=== PATIENT | female | born 1930 | race Caucasian/White ===

== ENCOUNTER 2021-07-09 18:28 | Inpatient (IN) ==
[2021-07-09] MEDS ORDERED: Ipratropium/Albuterol Neb 3 ML IH ONE (18:33)
[2021-07-09] MEDS ORDERED: methylPREDNISolone 125 MG/2 ML VIAL IVP ONE (18:33)
[2021-07-09] MEDS ORDERED: *HR* LORazepam 2 MG/ML VIAL IVP ONE (18:42)
[2021-07-09 19:03] LABS: Basophils # 0.1 K/mcL (0.0-0.2); Basophils % 1.1 %; Eosinophils # 0.3 K/mcL (0.0-0.6); Eosinophils % 3.2 %; Hematocrit 37.6 % (35.3-44.9); Hemoglobin 11.5 g/dL (11.5-15.4); Immature Granulocytes % 0.3 % (0-4); Lymphocytes # 3.1 K/mcL (0.6-4.6); Mean Corpuscular HGB Conc 30.6 g/dL (31.6-35.5); Mean Corpuscular Hemoglobin 28.3 pg (28.0-33.3); Mean Corpuscular Volume 92.4 fL (83.0-100.0); Mean Platelet Volume 10.6 fL (9.4-12.4); Monocytes # 0.8 K/mcL (0.0-1.3); Monocytes % 8.4 %; Neutrophils # 5.3 K/mcL (1.6-8.9); Platelet Count 291 K/mcL (140-400); Red Blood Count 4.07 M/mcL (3.82-4.97); Red Cell Distribution Width 15.5 % (11.5-14.5); White Blood Count 9.6 K/mcL (4.3-11.1)
[2021-07-09 19:23] LABS: BUN/Creatinine Ratio 15 (6-26); Blood Urea Nitrogen 13 mg/dL (8-23); Carbon Dioxide 26 mEq/L (23-29); Chloride 105 mEq/L (98-107); Glucose 162 mg/dL (70-105); Osmolality,Calculated 290 (280-300); Potassium 4.3 mEq/L (3.5-5.1); Sodium 138 mEq/L (136-145); eGFR For African Americans > 60 (> 60); eGFR For Non-African Americans > 60 (> 60)
[2021-07-09 19:25] LABS: Troponin I < 0.03 ng/mL (< 0.04)
[2021-07-09] MEDS ORDERED: Furosemide 40 MG/4 ML VIAL IVP ONE (19:44)
[2021-07-09] MEDS ORDERED: Ondansetron ODT 4 MG TAB.RAPDIS SL PRN (20:37)
[2021-07-09] MEDS ORDERED: Naloxone 0.4 MG/ML INJ IVP PRN (20:37)
[2021-07-09] MEDS ORDERED: Perflutren Lipid Microsphere 1.3 ML in 0.9 % Sodium Chloride 8.7 ML IVP PRN (20:50)
[2021-07-09] MEDS ORDERED: Isovue-370 500 ML BOTTLE IVP ONE (22:07)
[2021-07-09] MEDS ORDERED: Gabapentin 100 MG CAPSULE PO SCH (23:30)
[2021-07-10] MEDS: Gabapentin 100 MG CAPSULE PO SCH ×2 (00:27→21:24)
[2021-07-10 02:51] LABS: Hematocrit 34.6 % (35.3-44.9); Hemoglobin 10.7 g/dL (11.5-15.4); Mean Corpuscular HGB Conc 30.9 g/dL (31.6-35.5); Mean Corpuscular Hemoglobin 27.6 pg (28.0-33.3); Mean Corpuscular Volume 89.2 fL (83.0-100.0); Mean Platelet Volume 10.1 fL (9.4-12.4); Platelet Count 210 K/mcL (140-400); Red Blood Count 3.88 M/mcL (3.82-4.97); Red Cell Distribution Width 15.3 % (11.5-14.5); White Blood Count 5.2 K/mcL (4.3-11.1)
[2021-07-10 03:14] LABS: Alanine Aminotransferase 15 Units/L (7-52); Albumin 3.8 g/dL (3.5-5.7); Albumin/Globulin Ratio 1.5 (1.1-2.2); Alkaline Phosphatase 92 Units/L (34-104); Aspartate Amino Transferase 15 Units/L (13-39); BUN/Creatinine Ratio 18 (6-26); Bilirubin,Total 0.9 mg/dL (0.3-1.0); Blood Urea Nitrogen 13 mg/dL (8-23); Calcium 8.8 mg/dL (8.6-10.3); Carbon Dioxide 25 mEq/L (23-29); Chloride 103 mEq/L (98-107); Globulin 2.6 g/dL (2.4-3.5); Glucose 166 mg/dL (70-105); Magnesium 1.7 mg/dL (1.6-2.6); Osmolality,Calculated 288 (280-300); Phosphorous 4.4 mg/dL (2.7-4.5); Potassium 3.9 mEq/L (3.5-5.1); Sodium 137 mEq/L (136-145); Total Protein 6.4 g/dL (6.4-8.9); eGFR For African Americans > 60 (> 60); eGFR For Non-African Americans > 60 (> 60)
[2021-07-10] MEDS: Ipratropium/Albuterol Neb 3 ML IH SCH ×4 (04:07→21:51)
[2021-07-10] MEDS ORDERED: MethylPREDNISolone 40 MG/ML VIAL IVP SCH (06:00)
[2021-07-10] MEDS: *HR* Heparin 5,000 UNIT/ML VIAL SQ SCH ×2 (06:51→16:52)
[2021-07-10] MEDS: Furosemide 20 MG/2 ML VIAL IVP SCH ×2 (08:55→21:26)
[2021-07-10] MEDS: Melatonin 3 MG TABLET PO PRN (21:25)
[2021-07-11] MEDS: Ipratropium/Albuterol Neb 3 ML IH SCH ×4 (03:34→20:54)
[2021-07-11] MEDS: *HR* Heparin 5,000 UNIT/ML VIAL SQ SCH ×2 (06:53→17:18)
[2021-07-11] MEDS: Furosemide 20 MG/2 ML VIAL IVP SCH ×2 (10:07→21:02)
[2021-07-11] MEDS: Budesonide/Formoterol 160/4.5 1 PUFF INH IH SCH (20:54)
[2021-07-11] MEDS: Gabapentin 100 MG CAPSULE PO SCH (21:02)
[2021-07-11] MEDS: Melatonin 3 MG TABLET PO PRN (23:23)
[2021-07-12] MEDS: Ipratropium/Albuterol Neb 3 ML IH SCH ×3 (04:23→15:54)
[2021-07-12] MEDS: *HR* Heparin 5,000 UNIT/ML VIAL SQ SCH (05:58)
[2021-07-12 06:55] LABS: Basophils % 0.9 %; Eosinophils # 0.1 K/mcL (0.0-0.6); Eosinophils % 1.9 %; Hematocrit 36.4 % (35.3-44.9); Hemoglobin 10.7 g/dL (11.5-15.4); Immature Granulocytes % 0.4 % (0-4); Lymphocytes % 22.2 %; Mean Corpuscular HGB Conc 29.4 g/dL (31.6-35.5); Mean Corpuscular Hemoglobin 27.6 pg (28.0-33.3); Mean Corpuscular Volume 94.1 fL (83.0-100.0); Mean Platelet Volume 10.9 fL (9.4-12.4); Monocytes # 0.4 K/mcL (0.0-1.3); Monocytes % 9.5 %; Platelet Count 170 K/mcL (140-400); Red Blood Count 3.87 M/mcL (3.82-4.97); Red Cell Distribution Width 15.7 % (11.5-14.5); Segmented Neutrophils % 65.1 %; White Blood Count 4.6 K/mcL (4.3-11.1)
[2021-07-12 07:32] LABS: BUN/Creatinine Ratio 28 (6-26); Blood Urea Nitrogen 20 mg/dL (8-23); Calcium 8.8 mg/dL (8.6-10.3); Carbon Dioxide 33 mEq/L (23-29); Chloride 100 mEq/L (98-107); Glucose 91 mg/dL (70-105); Magnesium 1.8 mg/dL (1.6-2.6); Osmolality,Calculated 288 (280-300); Potassium 3.7 mEq/L (3.5-5.1); Sodium 138 mEq/L (136-145); eGFR For African Americans > 60 (> 60); eGFR For Non-African Americans > 60 (> 60)
[2021-07-12 08:07] VITALS: BP 119/60; PULSE 76; TEMP 98.2; O2SAT 93
[2021-07-12] MEDS: Furosemide 20 MG/2 ML VIAL IVP SCH (08:10)
[2021-07-12] MEDS ORDERED: Aspirin Enteric Coated 81 MG Tablet PO SCH (09:00)
[2021-07-12] MEDS ORDERED: Metoprolol XL (24 HR) Succ 25 MG TAB.ER.24H PO SCH (09:00)
[2021-07-12] MEDS ORDERED: Sennosides/Docusate Sodium TABLET PO SCH (10:00)
[2021-07-12] MEDS ORDERED: polyethylene glycoL 3350 17 GM POWD.PACK PO SCH (10:00)
[2021-07-12] MEDS: Budesonide/Formoterol 160/4.5 1 PUFF INH IH SCH (10:31)
[2021-07-12] MEDS ORDERED: lisinopriL 5 MG TABLET PO SCH (13:00)
[2021-07-13] MEDS ORDERED: Furosemide 20 MG TABLET PO SCH (09:00)
== END 2021-07-12 16:39 | disposition home health service (06) | DRG 291 ==
LOC: 2ANU 18:28 → EMEROOARM 18:28 → SUATTDRO 21:02 → 2NENU 22:20
PROVIDERS: ADMIT Student in an Organized Health Care Education/Training Program; ATTEND Internal Medicine

== ENCOUNTER 2021-11-01 14:47 | Inpatient (IN) ==
[2021-11-01 15:18] LABS: Basophils # 0.1 K/mcL (0.0-0.2); Eosinophils # 0.1 K/mcL (0.0-0.6); Eosinophils % 1.7 %; Hematocrit 32.2 % (35.3-44.9); Hemoglobin 9.8 g/dL (11.5-15.4); Immature Granulocytes % 0.4 % (0-4); Lymphocytes # 0.7 K/mcL (0.6-4.6); Lymphocytes % 14.9 %; Mean Corpuscular HGB Conc 30.4 g/dL (31.6-35.5); Mean Corpuscular Hemoglobin 27.5 pg (28.0-33.3); Mean Corpuscular Volume 90.2 fL (83.0-100.0); Mean Platelet Volume 10.6 fL (9.4-12.4); Monocytes # 0.4 K/mcL (0.0-1.3); Monocytes % 7.6 %; Neutrophils # 3.6 K/mcL (1.6-8.9); Platelet Count 209 K/mcL (140-400); Red Blood Count 3.57 M/mcL (3.82-4.97); Red Cell Distribution Width 15.8 % (11.5-14.5); Segmented Neutrophils % 74.4 %; White Blood Count 4.8 K/mcL (4.3-11.1)
[2021-11-01 15:39] LABS: BUN/Creatinine Ratio 19 (6-26); Blood Urea Nitrogen 19 mg/dL (8-23); Calcium 8.8 mg/dL (8.6-10.3); Carbon Dioxide 25 mEq/L (23-29); Chloride 108 mEq/L (98-107); Glucose 117 mg/dL (70-105); Osmolality,Calculated 293 (280-300); Potassium 3.7 mEq/L (3.5-5.1); Sodium 140 mEq/L (136-145)
[2021-11-01 15:40] LABS: Troponin I < 0.03 ng/mL (< 0.04)
[2021-11-01] MEDS ORDERED: Ipratropium/Albuterol Neb 3 ML IH ONE (20:56)
[2021-11-01 23:24] LABS: Influenza A PCR Negative (Negative); Influenza B PCR Negative (Negative); Resp. Syncytial Virus PCR Negative (Negative)
[2021-11-01 23:28] LABS: SARS-CoV-2 by PCR (In House) Negative (Negative)
[2021-11-02] MEDS ORDERED: cefTRIAXone 1,000 MG in 0.9 % Sodium Chloride Mini Bag 100 ML IVPB ONE (01:31)
[2021-11-02] MEDS ORDERED: Azithromycin 500 MG in 0.9 % Sodium Chloride 250 ML IVPB ONE (03:06)
[2021-11-02] MEDS ORDERED: Furosemide 40 MG/4 ML VIAL IVP ONE (03:06)
[2021-11-02] MEDS ORDERED: Naloxone 0.4 MG/ML INJ IVP PRN (03:28)
[2021-11-02] MEDS ORDERED: Ondansetron ODT 4 MG TAB.RAPDIS SL PRN (03:28)
[2021-11-02] MEDS ORDERED: Melatonin 3 MG TABLET PO PRN (03:28)
[2021-11-02] MEDS ORDERED: Albuterol 2.5 MG/3 ML NEBULIZER IH PRN (04:58)
[2021-11-02 06:22] LABS: Hematocrit 32.9 % (35.3-44.9); Hemoglobin 10.2 g/dL (11.5-15.4); Mean Corpuscular Volume 90.4 fL (83.0-100.0); Mean Platelet Volume 10.7 fL (9.4-12.4); Platelet Count 199 K/mcL (140-400); Red Blood Count 3.64 M/mcL (3.82-4.97); Red Cell Distribution Width 15.7 % (11.5-14.5); White Blood Count 6.2 K/mcL (4.3-11.1)
[2021-11-02 06:45] LABS: Calcium 9.1 mg/dL (8.6-10.3); Magnesium 1.8 mg/dL (1.6-2.6); Potassium 3.8 mEq/L (3.5-5.1)
[2021-11-02] MEDS: Aspirin Enteric Coated 81 MG Tablet PO SCH (09:26)
[2021-11-02] MEDS: Budesonide/Formoterol 160/4.5 1 PUFF INH IH SCH ×2 (10:41→21:58)
[2021-11-02] MEDS: Ipratropium Neb 0.5 MG NEBULIZER IH SCH ×2 (10:41→21:58)
[2021-11-02] MEDS: Furosemide 20 MG/2 ML VIAL IVP SCH ×2 (12:23→21:24)
[2021-11-02] MEDS ORDERED: Nitroglycerin 0.4 MG TAB.SUBL SL SCH (17:45)
[2021-11-02] MEDS ORDERED: Nitroglycerin 0.4 MG TAB.SUBL SL PRN (17:53)
[2021-11-02] MEDS: GuaiFENesin Liq 200 MG/10 ML UDC PO PRN (21:24)
[2021-11-02] MEDS: Gabapentin 100 MG CAPSULE PO SCH (22:23)
[2021-11-03] MEDS: *HR* Enoxaparin 40 MG/0.4 ML SYRINGE SQ SCH (05:09)
[2021-11-03] MEDS: Ipratropium Neb 0.5 MG NEBULIZER IH SCH ×2 (08:08→20:13)
[2021-11-03] MEDS: Budesonide/Formoterol 160/4.5 1 PUFF INH IH SCH ×2 (08:08→20:13)
[2021-11-03] MEDS: Furosemide 20 MG/2 ML VIAL IVP SCH ×3 (09:00→22:29)
[2021-11-03] MEDS: Metoprolol XL (24 HR) Succ 25 MG TAB.ER.24H PO SCH (09:00)
[2021-11-03] MEDS: *HR* Acetylcysteine 20% 600 MG/3 ML ORAL SYRINGE PO SCH (09:01)
[2021-11-03] MEDS: Fluticasone Propionate Nasal 50 MCG/SPRAY BOTTLE NS SCH (09:01)
[2021-11-03] MEDS: Aspirin Enteric Coated 81 MG Tablet PO SCH (09:01)
[2021-11-03] MEDS: Patient Taking Own Medication 1 EACH PO SCH (09:02)
[2021-11-03] MEDS ORDERED: Furosemide 20 MG/2 ML VIAL IVP ONE (11:46)
[2021-11-03] MEDS ORDERED: Sennosides/Docusate Sodium TABLET PO PRN (13:22)
[2021-11-03] MEDS ORDERED: polyethylene glycoL 3350 17 GM POWD.PACK PO ONE (14:04)
[2021-11-03] MEDS: GuaiFENesin Liq 200 MG/10 ML UDC PO PRN (22:09)
[2021-11-03] MEDS: Gabapentin 100 MG CAPSULE PO SCH (22:28)
[2021-11-04 04:06] LABS: Basophils # 0.1 K/mcL (0.0-0.2); Eosinophils # 0.2 K/mcL (0.0-0.6); Eosinophils % 3.9 %; Hematocrit 31.9 % (35.3-44.9); Immature Granulocytes % 0.2 % (0-4); Lymphocytes # 1.1 K/mcL (0.6-4.6); Lymphocytes % 22.8 %; Mean Corpuscular HGB Conc 31.3 g/dL (31.6-35.5); Mean Corpuscular Hemoglobin 27.6 pg (28.0-33.3); Mean Corpuscular Volume 88.1 fL (83.0-100.0); Mean Platelet Volume 10.6 fL (9.4-12.4); Monocytes # 0.4 K/mcL (0.0-1.3); Monocytes % 8.6 %; Neutrophils # 3.1 K/mcL (1.6-8.9); Platelet Count 185 K/mcL (140-400); Red Blood Count 3.62 M/mcL (3.82-4.97); Red Cell Distribution Width 15.1 % (11.5-14.5); Segmented Neutrophils % 63.5 %; White Blood Count 4.9 K/mcL (4.3-11.1)
[2021-11-04 04:24] LABS: Calcium 8.8 mg/dL (8.6-10.3); Magnesium 1.7 mg/dL (1.6-2.6); Potassium 3.6 mEq/L (3.5-5.1)
[2021-11-04] MEDS: *HR* Enoxaparin 40 MG/0.4 ML SYRINGE SQ SCH (05:43)
[2021-11-04] MEDS: Metoprolol XL (24 HR) Succ 25 MG TAB.ER.24H PO SCH (07:33)
[2021-11-04] MEDS: Aspirin Enteric Coated 81 MG Tablet PO SCH (07:33)
[2021-11-04] MEDS: *HR* Acetylcysteine 20% 600 MG/3 ML ORAL SYRINGE PO SCH (07:34)
[2021-11-04] MEDS: Furosemide 20 MG/2 ML VIAL IVP SCH ×2 (07:34→21:12)
[2021-11-04] MEDS: Patient Taking Own Medication 1 EACH PO SCH (07:34)
[2021-11-04] MEDS: Fluticasone Propionate Nasal 50 MCG/SPRAY BOTTLE NS SCH (07:36)
[2021-11-04] MEDS: Budesonide/Formoterol 160/4.5 1 PUFF INH IH SCH ×2 (10:10→21:59)
[2021-11-04] MEDS: Ipratropium Neb 0.5 MG NEBULIZER IH SCH ×2 (10:10→21:59)
[2021-11-04] MEDS ORDERED: polyethylene glycoL 3350 17 GM POWD.PACK PO ONE (14:04)
[2021-11-04] MEDS ORDERED: 0.9 % Sodium Chloride 1,000 ML ONE (15:13)
[2021-11-04] MEDS ORDERED: *HR* Midazolam HCl 2 MG/2 ML VIAL ONE (15:13)
[2021-11-04] MEDS ORDERED: *HR* FentaNYL (PF) 100 MCG/2 ML VIAL ONE (15:13)
[2021-11-04] MEDS ORDERED: Heparin 1,000 UNITS/500 mL 500 ML ONE (15:14)
[2021-11-04] MEDS ORDERED: *HR* Heparin 10,000 UNIT/10 ML VIAL ONE (15:14)
[2021-11-04] MEDS ORDERED: Iopamidol - 370 200 ML INFUS..BTL ONE (15:14)
[2021-11-04] MEDS ORDERED: Nitroglycerin 1,000 MCG/5 ML VIAL IV ONE (15:14)
[2021-11-04] MEDS: Gabapentin 100 MG CAPSULE PO SCH (21:15)
[2021-11-05 01:53] LABS: Basophils # 0.1 K/mcL (0.0-0.2); Basophils % 1.1 %; Calcium 9.1 mg/dL (8.6-10.3); Eosinophils # 0.1 K/mcL (0.0-0.6); Eosinophils % 2.1 %; Hematocrit 32.6 % (35.3-44.9); Hemoglobin 10.2 g/dL (11.5-15.4); Immature Granulocytes % 0.5 % (0-4); Lymphocytes # 0.8 K/mcL (0.6-4.6); Lymphocytes % 13.7 %; Magnesium 1.8 mg/dL (1.6-2.6); Mean Corpuscular HGB Conc 31.3 g/dL (31.6-35.5); Mean Corpuscular Volume 89.6 fL (83.0-100.0); Monocytes # 0.5 K/mcL (0.0-1.3); Monocytes % 8.9 %; Neutrophils # 4.2 K/mcL (1.6-8.9); Platelet Count 183 K/mcL (140-400); Potassium 3.9 mEq/L (3.5-5.1); Red Blood Count 3.64 M/mcL (3.82-4.97); Red Cell Distribution Width 15.2 % (11.5-14.5); Segmented Neutrophils % 73.7 %; White Blood Count 5.6 K/mcL (4.3-11.1)
[2021-11-05] MEDS: *HR* Enoxaparin 40 MG/0.4 ML SYRINGE SQ SCH (05:43)
[2021-11-05] MEDS: Budesonide/Formoterol 160/4.5 1 PUFF INH IH SCH (07:44)
[2021-11-05] MEDS: Ipratropium Neb 0.5 MG NEBULIZER IH SCH (07:44)
[2021-11-05 08:11] VITALS: BP 125/78; PULSE 71; TEMP 98.4; O2SAT 99
[2021-11-05] MEDS: Metoprolol XL (24 HR) Succ 25 MG TAB.ER.24H PO SCH (08:12)
[2021-11-05] MEDS: Furosemide 20 MG/2 ML VIAL IVP SCH (08:13)
[2021-11-05] MEDS: *HR* Acetylcysteine 20% 600 MG/3 ML ORAL SYRINGE PO SCH (08:13)
[2021-11-05] MEDS: Aspirin Enteric Coated 81 MG Tablet PO SCH (08:13)
[2021-11-05] MEDS: Fluticasone Propionate Nasal 50 MCG/SPRAY BOTTLE NS SCH (08:16)
== END 2021-11-05 12:02 | disposition home or self-care (01) | DRG 246 ==
LOC: 3BNU 14:47 → EMEROOARM 14:47 → SUATTDRO 11-02 12:19 → 3BNU 11-02 13:04
PROVIDERS: ADMIT Internal Medicine; ATTEND Family Medicine